=== PATIENT | female | born 1980 | race American Indian/Alaskan Native ===

== ENCOUNTER 2018-11-19 15:41 | Emergency (ER) | payer MEDICARE ==
--- NOTE | 2018-11-19 16:10 | Emergency Department Report ---
Blank Doc - Documentation Documentation: 37 y/o female comes in for 4 day history of lower abdominal pain and vaginal d ischarge.
[2018-11-19 17:10] LABS: Bacteria,Urine 4+ /HPF (Negative); Bilirubin,Urine NEG (Negative); Blood,Urine LG (Negative); Color,Urine Yellow (Yellow); Mucus,Urine FEW /HPF; Protein,Urine <15 mg/dL mg/dL (Negative); Urobilinogen,Urine < 2.0 mg/dL (<2.0)
[2018-11-19 17:11] LABS: HCG Qualitative,Urine Negative (Negative)
[2018-11-19] MEDS ORDERED: BENTYL IM ONE (19:38)
[2018-11-19] MEDS ORDERED: NACL 0.9% 1000 ML 1,000 ML IV ONE (19:38)
[2018-11-19] MEDS ORDERED: ZOFRAN IV ONE (19:38)
[2018-11-19] MEDS ORDERED: TYLENOL PO ONE (19:39)
[2018-11-19 20:06] LABS: Basophils # (Auto) 0.1 K/mm3 (0.0-0.1); Basophils % (Auto) 0.7 % (0.0-1.8); Eosinophils # (Auto) 0.1 K/mm3 (0.0-0.4); Eosinophils % (Auto) 1.4 % (0.0-4.3); Hematocrit 33.2 % (30.3-42.9); Hemoglobin 10.9 gm/dl (10.1-14.3); Lymphocytes # (Auto) 3.1 K/mm3 (1.2-5.4); Lymphocytes % (Auto) 36.3 % (13.4-35.0); Mean Corpuscular HGB Conc 33 % (30-34); Mean Corpuscular Volume 82 fl (79-97); Monocytes # (Auto) 0.6 K/mm3 (0.0-0.8); Monocytes % (Auto) 7.1 % (0.0-7.3); Platelet Count 417 K/mm3 (140-440); Red Blood Count 4.06 M/mm3 (3.65-5.03); Red Cell Distribution Width 15.8 % (13.2-15.2)
[2018-11-19 20:24] LABS: Alanine Aminotransferase 8 units/L (7-56); Albumin 4.2 g/dL (3.9-5); BUN/Creatinine Ratio 11; Blood Urea Nitrogen 8 mg/dL (7-17); Calcium 9.4 mg/dL (8.4-10.2); Hemolysis Index 0
--- NOTE | 2018-11-19 23:13 | Cat Scan Report ---
PROCEDURE: CT ABDOMEN PELVIS W CON TECHNIQUE: Computerized axial tomography of the abdomen and pelvis was performed after the IV inject ion of iodinated nonionic contrast. HISTORY: abdominal pain COMPARISONS: None . FINDINGS: Visualized lower thorax: No significant abnormality. Liver: Normal size and attenuation. Spleen: Normal size and attenuation. Gallbladder and biliary system: Normal. Pancreas: Normal. Adrenals: Normal. Kidneys: Normal. GI tract: No obstruction. No ileus or enteritis. The cecum, appendix and colon are normal . Lymph nodes and mesentery: Normal. Vasculature: Normal.. Bladder: Normal. Reproductive organs: Normal. Peritoneum: No free fluid. Musculoskeletal structures: No significant abnormality. Other: None . IMPRESSION: There is no evidence of intestinal or urinary tract obstruction. No ileus or enteritis. The appendix is normal. . This document is electronically signed by Jahaira Torres DO., Nov 19 2018 11:11:41 PM ET
--- NOTE | 2018-11-19 23:59 | Emergency Department Report ---
ED Abdominal Pain HPI - General Chief Complaint: Abdominal Pain Stated Complaint: STOMACH PAIN/BLEEDING/WEAKNESS Time Seen by Provider: 11/19/18 20:10 Source: patient Mode of arrival: Ambulatory Limitations: No Limitations - History of Present Illness Initial Comments: Patient is a A0 37-year-old female with no past medical history and has irregular menstrual cycle presents to the ED with complaint of acute onset persistent severe left lower quadrant abdominal pain that radiates to the suprapubic area with nausea for the last 1 week, worse in the last 3 days. Patient denies dysuria, urinary frequency and urgency, vaginal discharge, low back pain, diarrhea, fever, chills, back pain, dizziness, cough, chest pain or shortness of breath. MD Complaint: abdominal pain -: week(s) (1) Location: LLQ, suprapubic Radiation: LLQ, suprapubic Migration to: no migration Severity: severe Severity scale (0 -10): 7 Quality: cramping, aching, sharp Consistency: constant Improves With: nothing Worsens With: nothing Associated Symptoms: nausea. denies: vomiting, diarrhea, fever, chills, constipation, dysuria, hematemesis, hematochezia, melena, hematuria, anorexia, syncope - Related Data LMP (females 10-50): last week Previous Rx's Medication Instructions Recorded Last Taken Type Ketorolac [Toradol] 10 mg PO Q8H PRN #20 tablet 11/19/18 Unknown Rx Ondansetron [Zofran Odt] 4 mg PO Q6HR PRN #15 tab.rapdis 11/19/18 Unknown Rx Allergies Allergy/AdvReac Type Severity Reaction Status Date / Time No Known Allergies Allergy Unverified 11/19/18 20:50 ED Review of Systems ROS: Stated complaint: STOMACH PAIN/BLEEDING/WEAKNESS Other details as noted in HPI Comment: All other systems reviewed and negative Constitutional: no symptoms reported, see HPI. denies: fever, malaise, weakness Eyes: as per HPI. denies: eye pain, eye discharge, vision change ENT: as per HPI. denies: ear pain, throat pain, dental pain, hearing loss Respiratory: no symptoms reported, see HPI. denies: cough, shortness of breath, SOB with exertion, SOB at rest Cardiovascular: as per HPI. denies: chest pain, palpitations, dyspnea on exertion, edema, syncope, paroxysmal nocturnal dyspnea Endocrine: no symptoms reported, see HPI. denies: excessive sweating, flushing, intolerance to heat, increased hunger Gastrointestinal: as per HPI, abdominal pain, nausea. denies: vomiting, diarrhea, constipation, hematemesis, melena Genitourinary: as per HPI. denies: urgency, dysuria, frequency, hematuria, discharge, abnormal menses, dyspareunia Musculoskeletal: as per HPI. denies: back pain, joint swelling, arthralgia, myalgia Skin: as per HPI. denies: rash, lesions, change in color, change in hair/nails, pruritus Neurological: as per HPI. denies: headache, weakness, numbness, paresthesias Psychiatric: as per HPI Hematological/Lymphatic: as per HPI ED Past Medical Hx - Past Medical History Previous Medical History?: Yes Hx Asthma: Yes - Surgical History Past Surgical History?: No - Social History Smoking Status: Current Every Day Smoker Substance Use Type: None - Medications Home Medications: Home Medications Medication Instructions Recorded Confirmed Last Taken Type Ketorolac [Toradol] 10 mg PO Q8H PRN #20 tablet 11/19/18 Unknown Rx Ondansetron [Zofran Odt] 4 mg PO Q6HR PRN #15 tab.rapdis 11/19/18 Unknown Rx ED Physical Exam - General Limitations: No Limitations General appearance: alert, in no apparent distress - Head Head exam: Present: atraumatic, normocephalic, normal inspection - Eye Eye exam: Present: normal appearance, PERRL, EOMI Pupils: Present: normal accommodation - ENT ENT exam: Present: normal exam, normal orophraynx, mucous membranes moist, TM's normal bilaterally, normal external ear exam - Neck Neck exam: Present: normal inspection, full ROM - Respiratory Respiratory exam: Present: normal lung sounds bilaterally. Absent: respiratory distress, wheezes, rales - Cardiovascular Cardiovascular Exam: Present: regular rate, normal rhythm, normal heart sounds - GI/Abdominal GI/Abdominal exam: Present: soft, tenderness (LLQ, no rebound), normal bowel sounds. Absent: guarding, rebound, hyperactive bowel sounds, hypoactive bowel sounds - Rectal Rectal exam: Present: deferred - External exam: Present: other (Patient declined) Speculum exam: Present: other (Patient declined) Bi-manual exam: Present: other (Deferred) - Extremities Exam Extremities exam: Present: normal inspection, full ROM, normal capillary refill - Back Exam Back exam: Present: normal inspection, full ROM. Absent: tenderness, CVA tenderness (R), CVA tenderness (L), muscle spasm, paraspinal tenderness - Neurological Exam Neurological exam: Present: alert, oriented X3, CN II-XII intact, normal gait, reflexes normal - Psychiatric Psychiatric exam: Present: normal affect - Skin Skin exam: Present: warm, dry, intact ED Course Vital Signs 11/19/18 11/19/18 16:03 19:35 Temperature 98.4 F 98 F Pulse Rate 67 55 L Respiratory 20 17 Rate Blood Pressure 121/67 Blood Pressure 117/52 [Left] O2 Sat by Pulse 100 100 Oximetry - Reevaluation(s) Reevaluation #1: 11/20/18 00:03 Patient is alert and oriented 3 and is not in distress with normal vital signs. Labs were drawn and an abdominal pelvic CT scan with contrast is ordered. Patient was treated for pain the ED as well as also given antiemetics. On reevaluation, patient's pain is well controlled as well as nausea. Lab test results were reviewed and are unremarkable including urinalysis. Abdomen pelvis CT scan with contrast shows no acute abdominal pathology with a normal appendix and normal kidneys and pancreas and other organs. The patient's history and physical exam findings as well as lab test results and imaging report, the patient's symptoms are likely due to dysmenorrhea. Patient was discharged home in pain medications and advised to follow-up with MELLOWING MACHINE OPERATOR physician in 5-7 days for reevaluation. Patient was also advised to consider taking control medications to localize her menstrual cycle. ED Medical Decision Making - Lab Data Result diagrams: 11/19/18 19:46 11/19/18 19:46 - Radiology Data Radiology results: report reviewed, image reviewed Abdomen pelvis CT scan with contrast shows no acute pathology. - Medical Decision Making Patient is alert and oriented 3 and is not in distress with normal vital signs. Labs were drawn and an abdominopelvic CT scan with contrast is ordered. Patient was treated for pain the ED as well as also given antiemetics. On reevaluation, patient's pain is well controlled as well as nausea. Lab test results were reviewed and are unremarkable including urinalysis. Abdomen pelvis CT scan with contrast shows no acute abdominal pathology with a normal appendix and normal kidneys and pancreas and other organs. The patient's history and physical exam findings as well as lab test results and imaging report, the patient's symptoms are likely due to dysmenorrhea. Patient was discharged home in pain medications and advised to follow-up with MELLOWING MACHINE OPERATOR physician in 5-7 days for reevaluation. Patient was also advised to consider taking control medications to localize her menstrual cycle. - Differential Diagnosis Dysmenorrhea, Abdominal pain, Colitis Critical care attestation.: If time is entered above; I have spent that time in minutes in the direct care of this critically ill patient, excluding procedure time. ED Disposition Clinical Impression: Dysmenorrhea Abdominal pain Qualifiers: Abdominal location: left lower quadrant Qualified Code(s): R10.32 - Left lower quadrant pain Disposition: TO HOME OR SELFCARE Is pt being admited?: No Does the pt Need Aspirin: No Condition: Stable Instructions: Abdominal Pain (ED) Additional Instructions: Take medications with food, drink plenty of fluids and follow-up with your primary care physician's advice. Return to the ED immediately if symptoms get worse. Prescriptions: Ketorolac [Toradol] 10 mg PO Q8H PRN #20 tablet PRN Reason: Pain Ondansetron [Zofran Odt] 4 mg PO Q6HR PRN #15 tab.rapdis PRN Reason: Nausea Referrals: JAMAL TOMPKINS MD [Primary Care Provider] - 3-5 Days Time of Disposition: 23:57 Print Language: ITALIAN
[2018-11-20 00:20] VITALS: BP 118/67
== END 2018-11-20 00:20 | disposition home or self-care (01) ==
LOC: ED 15:41
DX: N94.6 Dysmenorrhea, unspecified (principal); J45.909 Unspecified asthma, uncomplicated; F17.200 Nicotine dependence, unspecified, uncomplicated
CPT/HCPCS: 36415; 74177; 80053; 81001; 81025; 83690; 85025; 96372; 96374; 99284; J0500; J2405; J7030; Q9967

== ENCOUNTER 2019-04-22 19:14 | Emergency (ER) | payer MEDICARE ==
--- NOTE | 2019-04-22 19:38 | Event Note ---
ED Screening Note Date of service: 04/22/19 Time: 19:35 ED Screening Note: This is a 38 y.o. F. that presents to the ER with left sided chest pain for 30- 45 minutes. Reports sharp pain that is non-radiating. States pain is worse with deep breaths. States she was driving when pain started. + palpations. - n/v, radiating pain, fever, cough, or SOB This initial assessment/diagnostic orders/clinical plan/treatment(s) is/are subject to change based on patients health status, clinical progression and re- assessment by fellow clinical providers in the ED. Further treatment and workup at subsequent clinical providers discretion. Patient/guardian urged not to elope from the ED as their condition may be serious if not clinically assessed and managed. Initial orders include: Labs, EKG, & CXR
--- NOTE | 2019-04-22 20:18 | XRay Report ---
CHEST PA AND LATERAL VIEWS INDICATION: Chest Pain. COMPARISON: None. FINDINGS: Support devices: None. Heart: Within normal limits. Lungs/Pleura: No acute pulmonary or pleural findings. IMPRESSION: 1. No significant abnormality. Signer Name: Buck Morrison MD Signed: 04/22/2019 8:14 PM Workstation Name: [id number]
[2019-04-22 20:31] LABS: Basophils # (Auto) 0.1 K/mm3 (0.0-0.1); Basophils % (Auto) 0.7 % (0.0-1.8); Eosinophils # (Auto) 0.1 K/mm3 (0.0-0.4); Eosinophils % (Auto) 0.7 % (0.0-4.3); Hematocrit 35.3 % (30.3-42.9); Hemoglobin 11.1 gm/dl (10.1-14.3); Lymphocytes # (Auto) 2.4 K/mm3 (1.2-5.4); Lymphocytes % (Auto) 21.1 % (13.4-35.0); Mean Corpuscular HGB Conc 32 % (30-34); Mean Corpuscular Volume 81 fl (79-97); Monocytes # (Auto) 0.7 K/mm3 (0.0-0.8); Monocytes % (Auto) 6.5 % (0.0-7.3); Platelet Count 418 K/mm3 (140-440); Red Blood Count 4.36 M/mm3 (3.65-5.03); Red Cell Distribution Width 16.2 % (13.2-15.2)
[2019-04-22 20:38] LABS: BUN/Creatinine Ratio 13; Blood Urea Nitrogen 9 mg/dL (7-17); Calcium 8.8 mg/dL (8.4-10.2); Hemolysis Index 3
[2019-04-22] MEDS ORDERED: TORADOL IM ONE (21:21)
--- NOTE | 2019-04-22 21:25 | Emergency Department Report ---
ED Chest Pain HPI - General Chief Complaint: Chest Pain Stated Complaint: CHEST PAIN Time Seen by Provider: 04/22/19 19:34 Source: patient Mode of arrival: Ambulatory Limitations: No Limitations - History of Present Illness Initial Comments: Patient is 38-year-old female with history of asthma. Patient presented to the ER complaining of left sided chest pain started this morning. Patient described her pain as sharp with no radiation. Patient denied any shortness of breath, fever or chills. Patient also stated that she has been having cough, productive with greenish sputum. Patient denied any fever or chills. No nausea or vomiting. MD Complaint: chest pain -: This morning Pain Location: left chest Severity scale (0 -10): 5 Quality: sharp Consistency: intermittent Improves With: remaining still Worsens With: movement Other Symptoms: cough - Related Data Previous Rx's Medication Instructions Recorded Last Taken Type Ketorolac [Toradol] 10 mg PO Q8H PRN #20 tablet 11/19/18 Unknown Rx Ondansetron [Zofran Odt] 4 mg PO Q6HR PRN #15 tab.rapdis 11/19/18 Unknown Rx Amoxicillin [Amoxicillin TAB] 875 mg PO BID #14 tablet 04/22/19 Unknown Rx Naproxen [Naprosyn] 500 mg PO BID #14 tablet 04/22/19 Unknown Rx Allergies Allergy/AdvReac Type Severity Reaction Status Date / Time No Known Allergies Allergy Unverified 11/19/18 20:50 Heart Score - HEART Score History: Slightly suspicious EKG: Normal Age: < 45 Risk factors: No known risk factors Troponin: < normal limit HEART Score: 0 - Critical Actions Critical Actions: 0-3 pts:0.9-1.7%risk of adverse cardiac event.Candidate for discharge ED Review of Systems ROS: Stated complaint: CHEST PAIN Other details as noted in HPI Comment: All other systems reviewed and negative Constitutional: denies: chills, fever Respiratory: cough. denies: orthopnea, shortness of breath, SOB with exertion, SOB at rest Cardiovascular: chest pain Gastrointestinal: denies: abdominal pain, nausea, vomiting, diarrhea, constipation, hematemesis, melena, hematochezia Musculoskeletal: denies: back pain Neurological: denies: headache, weakness ED Past Medical Hx - Past Medical History Hx Asthma: Yes - Surgical History Additional Surgical History: x 2 - Social History Smoking Status: Unknown if ever smoked Substance Use Type: None - Medications Home Medications: Home Medications Medication Instructions Recorded Confirmed Last Taken Type Ketorolac [Toradol] 10 mg PO Q8H PRN #20 tablet 11/19/18 Unknown Rx Ondansetron [Zofran Odt] 4 mg PO Q6HR PRN #15 tab.rapdis 11/19/18 Unknown Rx Amoxicillin [Amoxicillin TAB] 875 mg PO BID #14 tablet 04/22/19 Unknown Rx Naproxen [Naprosyn] 500 mg PO BID #14 tablet 04/22/19 Unknown Rx ED Physical Exam - General Limitations: No Limitations General appearance: alert, in no apparent distress - Head Head exam: Present: atraumatic, normocephalic, normal inspection - Eye Eye exam: Present: normal appearance, PERRL - ENT ENT exam: Present: normal exam, normal orophraynx, mucous membranes moist - Neck Neck exam: Present: normal inspection, full ROM. Absent: tenderness, meningismus, lymphadenopathy, thyromegaly - Respiratory Respiratory exam: Present: normal lung sounds bilaterally, chest wall tenderness. Absent: respiratory distress, wheezes, rales, rhonchi - Cardiovascular Cardiovascular Exam: Present: regular rate, normal rhythm, normal heart sounds - GI/Abdominal GI/Abdominal exam: Present: soft, normal bowel sounds. Absent: distended, tenderness, guarding, rebound, rigid, organomegaly, mass, bruit, pulsatile mass - Extremities Exam Extremities exam: Present: normal inspection, full ROM, normal capillary refill. Absent: tenderness, pedal edema, calf tenderness - Back Exam Back exam: Present: normal inspection, full ROM. Absent: CVA tenderness (R), CVA tenderness (L), muscle spasm, paraspinal tenderness, vertebral tenderness - Neurological Exam Neurological exam: Present: alert, oriented X3, CN II-XII intact, normal gait, reflexes normal - Psychiatric Psychiatric exam: Present: normal mood - Skin Skin exam: Present: intact ED Course Vital Signs 04/22/19 04/22/19 04/22/19 19:25 20:55 21:00 Temperature 98.3 F Pulse Rate 92 H 95 H 71 Respiratory 16 17 14 Rate Blood Pressure 115/73 121/72 121/72 Blood Pressure [Left] O2 Sat by Pulse 100 100 100 Oximetry 04/22/19 04/22/1919 21:03 21:47 22:00 Temperature 98.2 F Pulse Rate 78 78 Respiratory 16 19 15 Rate Blood Pressure 122/68 Blood Pressure 114/69 [Left] O2 Sat by Pulse 100 100 Oximetry 04/22/19 04/22/19 04/22/19 22:17 23:00 23:38 Temperature 98.3 F Pulse Rate 75 89 Respiratory 16 19 16 Rate Blood Pressure 118/68 Blood Pressure 129/71 [Left] O2 Sat by Pulse 99 Oximetry ED Medical Decision Making - Lab Data Result diagrams: 04/22/19 20:03 04/22/19 20:03 - EKG Data -: EKG Interpreted by Nv EKG shows normal: sinus rhythm Rate: normal - EKG Data Interpretation: no acute changes - Radiology Data Radiology results: report reviewed - Medical Decision Making Patient is 38-year-old female with history of asthma. Patient presented to the ER complaining of left sided chest pain started this morning. Patient described her pain as sharp with no radiation. Patient denied any shortness of breath, fever or chills. Patient also stated that she has been having cough, productive with greenish sputum. Patient denied any fever or chills. No nausea or vomiting. EKG is unremarkable. cxr is negative. 2 sets of troponins. d-dimer is negative. patient pain resolved with toradol. patient advised to follow up with her PCP in 2-3 days and return to the er if symptoms not improved. Critical care attestation.: If time is entered above; I have spent that time in minutes in the direct care of this critically ill patient, excluding procedure time. ED Disposition Clinical Impression: Chest pain, Costochondritis, acute, Bronchitis Disposition: -01 TO HOME OR SELFCARE Is pt being admited?: No Condition: Stable Instructions: Chest Pain (ED), Costochondritis (ED), Acute Bronchitis (ED) Prescriptions: Amoxicillin [Amoxicillin TAB] 875 mg PO BID #14 tablet Naproxen [Naprosyn] 500 mg PO BID #14 tablet Referrals: [facility] [Provider Group] - 3-5 Days
[2019-04-22 23:51] VITALS: BP 129/71
== END 2019-04-22 23:45 | disposition home or self-care (01) ==
LOC: ED 19:14
DX: M94.0 Chondrocostal junction syndrome [Tietze] (principal); J20.9 Acute bronchitis, unspecified; J45.909 Unspecified asthma, uncomplicated
CPT/HCPCS: 36415; 71045; 80048; 84484; 84703; 85025; 85379; 93005; 93010; 96372; 99284; J1885

== ENCOUNTER 2019-06-06 15:29 | Emergency (ER) | payer MEDICARE ==
[2019-06-06 15:34] VITALS: BP 140/79
--- NOTE | 2019-06-06 15:37 | Event Note ---
ED Screening Note Date of service: 06/06/19 Time: 15:36 ED Screening Note: This is a 38 y.o. F. that presents to the ER with rash to upper back for 4 days. PMH of HSV Denies pruritus, swelling, warmth, and redness. This initial assessment/diagnostic orders/clinical plan/treatment(s) is/are s ubject to change based on patients health status, clinical progression and re- assessment by fellow clinical providers in the ED. Further treatment and workup at subsequent clinical providers discretion. Patient/guardian urged not to elope from the ED as their condition may be serious if not clinically assessed and managed. Initial orders include:
--- NOTE | 2019-06-06 16:42 | Emergency Department Report ---
- General Chief complaint: Skin Rash Stated complaint: RASH ON BACK Time Seen by Provider: 06/06/19 15:35 Source: patient Mode of arrival: Ambulatory Limitations: No Limitations - History of Present Illness Initial comments: 38-year-old female presents to ED with rash 4 days. Patient states she noticed the rash on her back over days ago. She denies any pain or itching in the area of the rash. Denies fever, use of any new detergent/lotions/fragrances. Patient denies any recent insect bites. She denies any sore throat, oral lesions, cough or URI symptoms. Patient denies any abdominal pain, vomiting or diarrhea. She denies being in contact with anyone with a known rash. Denies any new medications MD complaint: rash -: days(s) (4) Location: back Severity: mild Improves with: none Worsens with: none Context: none Associated symptoms: denies other symptoms Treatments Prior to Arrival: none - Related Data Previous Rx's Medication Instructions Recorded Last Taken Type Ketorolac [Toradol] 10 mg PO Q8H PRN #20 tablet 11/19/18 Unknown Rx Ondansetron [Zofran Odt] 4 mg PO Q6HR PRN #15 tab.rapdis 11/19/18 Unknown Rx Amoxicillin [Amoxicillin TAB] 875 mg PO BID #14 tablet 04/22/19 Unknown Rx Naproxen [Naprosyn] 500 mg PO BID #14 tablet 04/22/19 Unknown Rx Allergies Allergy/AdvReac Type Severity Reaction Status Date / Time No Known Allergies Allergy Unverified 11/19/18 20:50 Abscess Boil HPI - HPI Chief Complaint: Skin Rash Stated Complaint: RASH ON BACK Time Seen by Provider: 06/06/19 15:35 Home Medications: Previous Rx's Medication Instructions Recorded Last Taken Type Ketorolac [Toradol] 10 mg PO Q8H PRN #20 tablet 11/19/18 Unknown Rx Ondansetron [Zofran Odt] 4 mg PO Q6HR PRN #15 tab.rapdis 11/19/18 Unknown Rx Amoxicillin [Amoxicillin TAB] 875 mg PO BID #14 tablet 04/22/19 Unknown Rx Naproxen [Naprosyn] 500 mg PO BID #14 tablet 04/22/19 Unknown Rx Allergies/Adverse Reactions: Allergies Allergy/AdvReac Type Severity Reaction Status Date / Time No Known Allergies Allergy Unverified 11/19/18 20:50 ED Review of Systems ROS: Stated complaint: RASH ON BACK Other details as noted in HPI Comment: All other systems reviewed and negative Constitutional: denies: chills, fever ENT: denies: throat pain Respiratory: denies: cough, shortness of breath Gastrointestinal: denies: abdominal pain, vomiting, diarrhea Genitourinary: denies: dysuria Musculoskeletal: denies: arthralgia Skin: as per HPI, rash Neurological: denies: headache ED Past Medical Hx - Past Medical History Hx Asthma: Yes - Surgical History Additional Surgical History: x 2 - Social History Smoking Status: Never Smoker Substance Use Type: None - Medications Home Medications: Home Medications Medication Instructions Recorded Confirmed Last Taken Type Ketorolac [Toradol] 10 mg PO Q8H PRN #20 tablet 11/19/18 Unknown Rx Ondansetron [Zofran Odt] 4 mg PO Q6HR PRN #15 tab.rapdis 11/19/18 Unknown Rx Amoxicillin [Amoxicillin TAB] 875 mg PO BID #14 tablet 04/22/19 Unknown Rx Naproxen [Naprosyn] 500 mg PO BID #14 tablet 04/22/19 Unknown Rx ED Physical Exam - General Limitations: No Limitations General appearance: alert, in no apparent distress - Head Head exam: Present: atraumatic, normocephalic - Eye Eye exam: Present: normal appearance - ENT ENT exam: Present: normal exam, normal orophraynx, mucous membranes moist - Neck Neck exam: Present: normal inspection - Respiratory Respiratory exam: Present: normal lung sounds bilaterally. Absent: respiratory distress - Cardiovascular Cardiovascular Exam: Present: normal rhythm, tachycardia - GI/Abdominal GI/Abdominal exam: Present: soft. Absent: distended, tenderness - Extremities Exam Extremities exam: Present: normal inspection - Back Exam Back exam: Present: full ROM - Neurological Exam Neurological exam: Present: alert, oriented X3 - Psychiatric Psychiatric exam: Present: normal affect, normal mood - Skin Skin exam: Present: rash (hyperpigmented maculopapular rash located on upper back) ED Course Vital Signs 06/06/19 06/06/19 06/06/19 15:32 15:39 16:36 Temperature 98.4 F Pulse Rate 134 H 120 H 90 Respiratory 16 18 Rate Blood Pressure 140/79 O2 Sat by Pulse 99 100 Oximetry ED Medical Decision Making - Medical Decision Making Patient initially tachycardic at triage. Patient states she was initially nervous because she recently received a diagnosis of herpes at a recent doctor's appointment. Patient also concerned about possible HIV infection. Patient is afebrile, nontoxic appearing. Rash is isolated to the back, no mucosal involvement, no sloughing of the skin. Vitals were repeated and are currently normal. Patient advised to follow-up with technical communicator. Also advised to follow-up with her physician regarding HIV testing. Return precautions given. - Differential Diagnosis rash Critical care attestation.: If time is entered above; I have spent that time in minutes in the direct care of this critically ill patient, excluding procedure time. ED Disposition Clinical Impression: Dermatitis Disposition: DC-01 TO HOME OR SELFCARE Is pt being admited?: No Condition: Stable Instructions: Acute Rash (ED) Additional Instructions: Dr Carroll Wren, technical communicator [id number] [facility] [address] [place] [address] Referrals: PRIMARY CAREMD [Referring] - 3-5 Days YEVGENIY FITCH MD [Referring] - 3-5 Days SHANAE JERONIMO MD [Staff Physician] - 3-5 Days Time of Disposition: 16:50
== END 2019-06-06 16:58 | disposition home or self-care (01) ==
LOC: ED 15:29
DX: L30.9 Dermatitis, unspecified (principal); J45.909 Unspecified asthma, uncomplicated

== ENCOUNTER 2020-05-08 20:48 | Emergency (ER) | payer MEDICARE ==
[2020-05-08 21:44] VITALS: BP 144/58
[2020-05-08 23:10] LABS: Basophils # (Auto) 0.1 K/mm3 (0.0-0.1); Basophils % (Auto) 0.6 % (0.0-1.8); Eosinophils # (Auto) 0.1 K/mm3 (0.0-0.4); Eosinophils % (Auto) 0.5 % (0.0-4.3); Hematocrit 34.6 % (30.3-42.9); Hemoglobin 11.6 gm/dl (10.1-14.3); Lymphocytes # (Auto) 2.4 K/mm3 (1.2-5.4); Lymphocytes % (Auto) 21.1 % (13.4-35.0); Mean Corpuscular HGB Conc 34 % (30-34); Mean Corpuscular Volume 84 fl (79-97); Monocytes # (Auto) 0.8 K/mm3 (0.0-0.8); Monocytes % (Auto) 7.4 % (0.0-7.3); Platelet Count 452 K/mm3 (140-440); Red Cell Distribution Width 14.4 % (13.2-15.2)
[2020-05-08 23:35] LABS: BUN/Creatinine Ratio 14; Blood Urea Nitrogen 11 mg/dL (7-17); Calcium 9.2 mg/dL (8.4-10.2); Hemolysis Index 10
[2020-05-09 02:06] LABS: Bacteria,Urine 1+ /HPF (Negative); Bilirubin,Urine NEG (Negative); Blood,Urine LG (Negative); Color,Urine Straw (Yellow); Mucus,Urine FEW /HPF; Protein,Urine <15 mg/dL mg/dL (Negative); Urobilinogen,Urine < 2.0 mg/dL (<2.0)
[2020-05-09 02:09] LABS: HCG Qualitative,Urine Negative (Negative)
== END 2020-05-09 03:35 | disposition left against medical advice (07) ==
LOC: ED 20:48
DX: R07.89 Other chest pain (principal); M54.6 Pain in thoracic spine; Z53.21 Procedure and treatment not carried out due to patient leaving prior to being seen by health care provider
CPT/HCPCS: 36415; 80048; 81001; 81025; 84484; 85025; 93005

== ENCOUNTER 2020-07-24 16:43 | Emergency (ER) | payer MEDICARE ==
[2020-07-24 16:56] VITALS: BP 131/75
[2020-07-24] MEDS ORDERED: ASPIRIN 325 MG TAB PO ONE (16:58)
--- NOTE | 2020-07-24 17:30 | XRay Report ---
CHEST 2 VIEWS INDICATION / CLINICAL INFORMATION: Chest Pain. COMPARISON: 04/22/19 FINDINGS: SUPPORT DEVICES: None. HEART / MEDIASTINUM: No significant abnormality. LUNGS / PLEURA: No significant pulmonary or pleural abnormality. No pneumothorax. ADDITIONAL FINDINGS: No significant additional findings. IMPRESSION: 1. No acute findings. Signer Name: Dmitry Espitia MD Signed: 07/24/2020 5:25 PM Workstation Name: [id number]
[2020-07-24 18:26] LABS: Basophils % (Auto) 0.3 % (0.0-1.8); Eosinophils # (Auto) 0.1 K/mm3 (0.0-0.4); Eosinophils % (Auto) 0.5 % (0.0-4.3); Hematocrit 34.7 % (30.3-42.9); Hemoglobin 11.3 gm/dl (10.1-14.3); Lymphocytes % (Auto) 16.7 % (13.4-35.0); Mean Corpuscular HGB Conc 33 % (30-34); Mean Corpuscular Volume 83 fl (79-97); Monocytes # (Auto) 0.7 K/mm3 (0.0-0.8); Platelet Count 553 K/mm3 (140-440); Red Blood Count 4.19 M/mm3 (3.65-5.03); Red Cell Distribution Width 15.8 % (13.2-15.2)
[2020-07-24 18:42] LABS: Blood Urea Nitrogen 10 mg/dL (7-17); Calcium 9.5 mg/dL (8.4-10.2); Hemolysis Index 2
[2020-07-24 19:03] LABS: BUN/Creatinine Ratio 14
--- NOTE | 2020-07-24 21:33 | Emergency Department Report ---
ED Chest Pain HPI - General Chief Complaint: Chest Pain Stated Complaint: CHEST DISCOMFORT Time Seen by Provider: 07/24/20 21:24 Source: patient Mode of arrival: Ambulatory Limitations: No Limitations - History of Present Illness Initial Comments: This is a 39-year-old -Central African female presents to the emergency department with complaint of some generalized chest tightness that has been going on intermittently since yesterday. The patient says that she has been having a lot of stress and anxiety and thinks that this could be part of the cause. She denies any shortness of breath, nausea, vomiting, back pain, lower extremity swelling or diaphoresis. The patient does admit to feeling nervous. She denies any past medical history. No family history of early cardiac events or ME. She denies any tobacco or illicit drug use. At the time of my examination she says that she is asymptomatic. The patient also admits that she has had the symptoms intermittently in the past over this past year. She has a primary care physician and has an appointment with them tomorrow. She did not take anything for symptoms prior to presentation today. - Related Data Previous Rx's Medication Instructions Recorded Last Taken Type Ketorolac [Toradol] 10 mg PO Q8H PRN #20 tablet 11/19/18 Unknown Rx Ondansetron [Zofran Odt] 4 mg PO Q6HR PRN #15 tab.rapdis 11/19/18 Unknown Rx Amoxicillin [Amoxicillin TAB] 875 mg PO BID #14 tablet 04/22/19 Unknown Rx Naproxen [Naprosyn] 500 mg PO BID #14 tablet 04/22/19 Unknown Rx Allergies Allergy/AdvReac Type Severity Reaction Status Date / Time No Known Allergies Allergy Unverified 11/19/18 20:50 Heart Score - HEART Score History: Slightly suspicious EKG: Normal Age: < 45 Risk factors: No known risk factors Troponin: < normal limit HEART Score: 0 - Critical Actions Critical Actions: 0-3 pts:0.9-1.7%risk of adverse cardiac event.Candidate for discharge ED Review of Systems ROS: Stated complaint: CHEST DISCOMFORT Other details as noted in HPI Comment: All other systems reviewed and negative Constitutional: denies: chills, fever Eyes: denies: eye pain, vision change ENT: denies: ear pain, throat pain Respiratory: denies: cough, shortness of breath Cardiovascular: chest pain. denies: palpitations Gastrointestinal: denies: abdominal pain, vomiting Genitourinary: denies: dysuria, discharge Musculoskeletal: denies: back pain, arthralgia Skin: denies: rash, lesions Neurological: denies: headache, weakness ED Past Medical Hx - Past Medical History Hx Asthma: Yes - Surgical History Additional Surgical History: x 2 - Social History Smoking Status: Never Smoker - Medications Home Medications: Home Medications Medication Instructions Recorded Confirmed Last Taken Type Ketorolac [Toradol] 10 mg PO Q8H PRN #20 tablet 11/19/18 Unknown Rx Ondansetron [Zofran Odt] 4 mg PO Q6HR PRN #15 tab.rapdis 11/19/18 Unknown Rx Amoxicillin [Amoxicillin TAB] 875 mg PO BID #14 tablet 04/22/19 Unknown Rx Naproxen [Naprosyn] 500 mg PO BID #14 tablet 04/22/19 Unknown Rx ED Physical Exam - General Limitations: No Limitations - Other Other exam information: GENERAL: The patient is well-developed well-nourished. HENT: Normocephalic. Atraumatic. Patient has moist mucous membranes. EYES: Extraocular motions are intact. NECK: Supple. Trachea is midline. CHEST/LUNGS: Clear to auscultation. There is no respiratory distress noted. HEART/CARDIOVASCULAR: Regular. There is no tachycardia. There is no murmur. ABDOMEN: Abdomen is soft, nontender. Patient has normal bowel sounds. SKIN: Skin is warm and dry. NEURO: The patient is awake, alert, and oriented. The patient is cooperative. The patient has no focal neurologic deficits. Normal speech. MUSCULOSKELETAL: There is no tenderness or deformity. There is no limitation range of motion. ED Course Vital Signs 07/24/20 16:52 Temperature 98.1 F Pulse Rate 122 H Respiratory 18 Rate Blood Pressure 131/75 O2 Sat by Pulse 99 Oximetry REBECCA score - Rebecca Score Age > 65: (0) No Aspirin use within the Past 7 Days: (0) No 3 or more CAD Risk Factors: (0) No 2 or more Angina events in past 24 hrs: (1) Yes Known CAD with more than 50% Stenosis: (0) No Elevated Cardiac Markers: (0) No ST Deviation Greater than 0.5mm: (0) No REBECCA Score: 1 ED Medical Decision Making - Lab Data Result diagrams: 07/24/20 17:01 07/24/20 17:01 Lab Results 07/24/20 07/24/20 Range/Units 17:01 17:01 WBC 12.1 H (4.5-11.0) K/mm3 RBC 4.19 (3.65-5.03) M/mm3 Hgb 11.3 (10.1-14.3) gm/dl Hct 34.7 (30.3-42.9) % MCV 83 (79-97) fl MCH 27 L (28-32) pg MCHC 33 (30-34) % RDW 15.8 H (13.2-15.2) % Plt Count 553 H (140-440) K/mm3 Lymph % (Auto) 16.7 (13.4-35.0) % Winston % (Auto) 6.0 (0.0-7.3) % Eos % (Auto) 0.5 (0.0-4.3) % Baso % (Auto) 0.3 (0.0-1.8) % Lymph # (Auto) 2.0 (1.2-5.4) K/mm3 Winston # (Auto) 0.7 (0.0-0.8) K/mm3 Eos # (Auto) 0.1 (0.0-0.4) K/mm3 Baso # (Auto) 0.0 (0.0-0.1) K/mm3 Seg Neutrophils % 76.5 H (40.0-70.0) % Seg Neutrophils # 9.2 H (1.8-7.7) K/mm3 Sodium 137 (137-145) mmol/L Potassium 4.1 (3.6-5.0) mmol/L Chloride 101.5 (98-107) mmol/L Carbon Dioxide 24 (22-30) mmol/L Anion Gap 16 mmol/L BUN 10 (7-17) mg/dL Creatinine 0.7 (0.6-1.2) mg/dL Estimated GFR > 60 ml/min BUN/Creatinine Ratio 14 % Glucose 92 (65-100) mg/dL Calcium 9.5 (8.4-10.2) mg/dL Troponin T < 0.010 (0.00-0.029) ng/mL - EKG Data -: EKG Interpreted by Ia EKG shows normal: sinus rhythm, axis, intervals, QRS complexes, ST-T waves Rate: normal - EKG Data When compared to previous EKG there are: no significant change Interpretation: unchanged when compared t (05/08/20) - Radiology Data Radiology results: image reviewed interpreted by me: Chest x-ray does not show any acute process. There are no pleural effusions, obvious pneumonia and there is no pneumothorax. No significant cardiomegaly. - Medical Decision Making This patient presents to the emergency department with the complaint of some intermittent generalized chest discomfort that has been going on since yesterday. EKG does not have any morphology consistent with ST elevation myocardial infarction or any dysrhythmia. Patient's labs have been unremarkable including CBC, metabolic panel and a negative troponin. At the time of my initial examination the patient is asymptomatic. A chest x-ray was done that does not show any pneumonia, pleural effusions, pneumothorax, focal consolidation, or any other acute process. The patient is a 0 on the heart score and low on the REBECCA score. The patient is low on the Wells score criteria and has no complaints of any shortness of breath or back pain. For this reason the patient appears safe for discharge home at this time. Her contact information has been sent over to the [facility] vascular lookout, and someone from the office should be contacting her shortly for close outpatient follow-up as part of our [facility] low risk chest pain protocol. It should be noted that the patient's tachycardia had resolved at the time of my evaluation. The EKG also shows a normal heart rate. The vitals were not updated in the chart. Critical Care Time: No Critical care attestation.: If time is entered above; I have spent that time in minutes in the direct care of this critically ill patient, excluding procedure time. ED Disposition Clinical Impression: Intermittent chest pain Disposition: DC-01 TO HOME OR SELFCARE Is pt being admited?: No Condition: Stable Instructions: Nonspecific Chest Pain, Adult, Chest Pain (ED) Additional Instructions: Please follow-up with your primary care physician tomorrow as previously scheduled. I have sent your contact information over to the [facility] vascular lookout, and someone from their office should be contacting you shortly for close outpatient follow-up. Return to the emergency department with any worsening of your symptoms, new or concerning symptoms not addressed during this current emergency department visit, or with any acute distress. Referrals: PRIMARY CARE, [Primary Care Provider] - 07/25/20 EUGENE MCELROY MD [Staff Physician] - 2-3 Days Time of Disposition: 21:32
== END 2020-07-24 21:44 | disposition home or self-care (01) ==
LOC: ED 16:43
DX: R07.89 Other chest pain (principal); J45.909 Unspecified asthma, uncomplicated; Z79.2 Long term (current) use of antibiotics; Z79.899 Other long term (current) drug therapy
CPT/HCPCS: 36415; 71046; 80048; 84484; 85025; 93005; 99283

== ENCOUNTER 2021-04-27 13:56 | Emergency (ER) | payer MEDICARE ==
[2021-04-27] MEDS ORDERED: IBUPROFEN 800 MG TAB PO ONE (14:37)
--- NOTE | 2021-04-27 15:10 | Emergency Department Report ---
ED Upper Extremity Inj HPI - General Chief Complaint: Extremity Injury, Upper Stated Complaint: RT ARM SWELLING/WORK RELATED YESTERDAY Time Seen by Provider: 04/27/21 14:22 Source: patient Mode of arrival: Ambulatory Limitations: No Limitations - History of Present Illness Initial Comments: This is a 40-year-old female nontoxic, well nourished in appearance, no acute signs of distress presents to the ED with c/o of right forearm pain 1 day. Patient stated that a metal piece hit patient's forearm while at work yesterday. Patient denies any other injuries or trauma. Patient denies any numbness, tingling, fever, chills, nausea, vomiting, chest pain, shortness of breath, headache, stiff neck. Patient denies any joint swelling or joint redness. Patient denies decreased range of motion. Patient denies any allergies or significant past medical history. MD Complaint: Injury to:: right, forearm Other Injuries: none Place: work Severity scale (0 -10): 8 Improves With: immobilization Worsens With: other (Palpation) Associated Symptoms: denies other symptoms. denies: weakness, numbness, neck pain, suspects foreign body, nausea/vomiting, heard/felt popping sensat - Related Data Previous Rx's Medication Instructions Recorded Last Taken Type Ketorolac [Toradol] 10 mg PO Q8H PRN #20 tablet 11/19/18 Unknown Rx Ondansetron [Zofran Odt] 4 mg PO Q6HR PRN #15 tab.rapdis 11/19/18 Unknown Rx Amoxicillin [Amoxicillin TAB] 875 mg PO BID #14 tablet 04/22/19 Unknown Rx Naproxen [Naprosyn] 500 mg PO BID #14 tablet 04/22/19 Unknown Rx Naproxen 500 mg PO Q12H PRN #12 tablet 04/27/21 Unknown Rx Allergies Allergy/AdvReac Type Severity Reaction Status Date / Time No Known Allergies Allergy Verified 04/27/21 14:11 ED Review of Systems ROS: Stated complaint: RT ARM SWELLING/WORK RELATED YESTERDAY Other details as noted in HPI Comment: All other systems reviewed and negative Constitutional: denies: chills, fever Eyes: denies: eye pain, eye discharge, vision change ENT: denies: ear pain, throat pain Respiratory: denies: cough, shortness of breath, wheezing Cardiovascular: denies: chest pain, palpitations Endocrine: no symptoms reported Gastrointestinal: denies: abdominal pain, nausea, diarrhea Genitourinary: denies: urgency, dysuria, discharge Musculoskeletal: denies: back pain, joint swelling, arthralgia Skin: denies: rash, lesions Neurological: denies: headache, weakness, paresthesias Psychiatric: denies: anxiety, depression Hematological/Lymphatic: denies: easy bleeding, easy bruising ED Past Medical Hx - Past Medical History Hx Asthma: Yes - Surgical History Additional Surgical History: x 2 - Social History Smoking Status: Never Smoker - Medications Home Medications: Home Medications Medication Instructions Recorded Confirmed Last Taken Type Ketorolac [Toradol] 10 mg PO Q8H PRN #20 tablet 11/19/18 Unknown Rx Ondansetron [Zofran Odt] 4 mg PO Q6HR PRN #15 tab.rapdis 11/19/18 Unknown Rx Amoxicillin [Amoxicillin TAB] 875 mg PO BID #14 tablet 04/22/19 Unknown Rx Naproxen [Naprosyn] 500 mg PO BID #14 tablet 04/22/19 Unknown Rx Naproxen 500 mg PO Q12H PRN #12 tablet 04/27/21 Unknown Rx ED Physical Exam - General Limitations: No Limitations General appearance: alert, in no apparent distress - Head Head exam: Present: atraumatic, normocephalic - Eye Eye exam: Present: normal appearance - Neck Neck exam: Present: normal inspection, full ROM. Absent: lymphadenopathy - Respiratory Respiratory exam: Absent: respiratory distress - Cardiovascular Cardiovascular Exam: Present: regular rate - Extremities Exam Extremities exam: Present: normal inspection, full ROM, tenderness, normal capillary refill. Absent: joint swelling - Expanded Upper Extremity Exam Right General: Present: normal inspection Shoulder Exam: Present: normal inspection, full ROM. Absent: tenderness, swelling Upper Arm exam: Present: normal inspection, full ROM. Absent: tenderness, swelling Elbow exam: Present: normal inspection, full ROM. Absent: tenderness, swelling, abrasion, laceration, ecchymosis, deformity, crepidus, dislocation, erythema, effusion, pain w/ pronation/supination, tenderness over radial head Forearm Wrist exam: Present: normal inspection, full ROM, tenderness, ec chymosis. Absent: swelling, abrasion, laceration, deformity, crepidus, dislocation, erythema, tenderness over anatomical snuff box, pain with axial thumb loading Hand Wrist exam: Present: normal inspection, full ROM. Absent: tenderness, swelling Vascular: Present: normal capillary refill. Absent: vascular compromise (Neurovascular within normal limits) - Back Exam Back exam: Present: normal inspection, full ROM - Neurological Exam Neurological exam: Present: alert, oriented X3, normal gait - Psychiatric Psychiatric exam: Present: normal affect, normal mood - Skin Skin exam: Present: warm, dry, intact, normal color. Absent: rash ED Course Vital Signs 04/27/21 04/27/21 14:11 15:04 Temperature 97.8 F Pulse Rate 90 Respiratory 18 12 Rate Blood Pressure 135/70 O2 Sat by Pulse 100 Oximetry - Reevaluation(s) Reevaluation #1: 04/27/21 15:30 Patient is speaking in full sentences with no signs of distress noted. ED Medical Decision Making - Radiology Data [facility] [address] [place] [address] XRay Report Signed Patient: STACEY GASCA MR#: [id number] : 1980 Acct:[id number] Age/Sex: 40 / F ADM Date: 04/27/21 Loc: ED Attending Dr: Ordering Physician: GLENROY ETIENNE NP Date of Service: 04/27/21 Procedure(s): XR forearm RT Accession Number(s): [id number] cc: GLENROY ETIENNE NP Fluoro Time In Minutes: RIGHT FOREARM 2 VIEW(S) INDICATION / CLINICAL INFORMATION: forearm pain s/p direct blow injury COMPARISON: None available. FINDINGS: BONES / JOINT(S): No acute fracture or subluxation. No significant arthritis. SOFT TISSUES: No significant abnormality. ADDITIONAL FINDINGS: None. Signer Name: Armand Wahl MD Signed: 04/27/2021 4:13 PM Workstation Name: [id number] Transcribed By: DB Dictated By: ARMAND WAHL MD Electronically Authenticated By: ARMAND WAHL MD Signed Date/Time: 04/27/211612 DD/ 12 TD/TT: - Medical Decision Making This is a 40-year-old female that presents with right forearm contusion. Patient is stable and was examined by me. X-ray has been obtained and dictated by the radiologist. Patient is notified of the x-ray report with noted by the patient. Patient does have normal range of motion with some tenderness and no joint swelling. No ecchymosis. no joint redness or swelling. Not warm to touch. No signs of cellulites present. Patient was instructed to RICE therapy. Patient received Motrin for pain. Patient is discharged with naproxen. Patient was instructed to follow-up with a orthopedic doctor in 3-5 days or if symptoms worsen and continue return to emergency room as soon as possible. At time of discharge, the patient does not seem toxic or ill in appearance. No acute signs of distress noted. Patient agrees to discharge treatment plan of care. No further questions noted by the patient. Critical care attestation.: If time is entered above; I have spent that time in minutes in the direct care of this critically ill patient, excluding procedure time. ED Disposition Clinical Impression: Contusion of right forearm Qualifiers: Encounter type: initial encounter Qualified Code(s): S50.11XA - Contusion of right forearm, initial encounter Disposition: HOME / SELF CARE / HOMELESS Is pt being admited?: No Does the pt Need Aspirin: No Condition: Stable Instructions: RICE Therapy for Routine Care of Injuries, [id number] Additional Instructions: Follow-up with a orthopedic doctor in 3-5 days or if symptoms worsen and continue return to emergency room as soon as possible. Prescriptions: Naproxen 500 mg PO Q12H PRN #12 tablet PRN Reason: Pain , Severe (7-10) Referrals: PRIMARY CAREMD [Referring] - 3-5 Days DO REEVES MD [Staff Physician] - 3-5 Days Forms: Work/School Release Form(ED) Time of Disposition: 16:50
--- NOTE | 2021-04-27 16:18 | XRay Report ---
RIGHT FOREARM 2 VIEW(S) INDICATION / CLINICAL INFORMATION: forearm pain s/p direct blow injury COMPARISON: None available. FINDINGS: BONES / JOINT(S): No acute fracture or subluxation. No significant arthritis. SOFT TISSUES: No significant abnormality. ADDITIONAL FINDINGS: None. Signer Name: Wil Wahl MD Signed: 04/27/2021 4:13 PM Workstation Name: [id number]
[2021-04-27 17:26] VITALS: BP 126/69
== END 2021-04-27 17:42 | disposition home or self-care (01) ==
LOC: ED 13:56
DX: S50.11XA Contusion of right forearm, initial encounter (principal); W20.8XXA Other cause of strike by thrown, projected or falling object, initial encounter; Y93.89 Activity, other specified; Y92.89 Other specified places as the place of occurrence of the external cause; Y99.0 Civilian activity done for income or pay; J45.909 Unspecified asthma, uncomplicated
CPT/HCPCS: 99283

== ENCOUNTER 2021-10-01 20:31 | Emergency (ER) | payer MEDICARE ==
--- NOTE | 2021-10-02 06:45 | Emergency Department Report ---
ED General Adult HPI - General Chief complaint: Anxiety Stated complaint: CHEST PAIN,BOWEL ISSUES Time Seen by Provider: 10/02/21 06:24 Source: patient Mode of arrival: Ambulatory Limitations: No Limitations - History of Present Illness Initial comments: 40-year-old female with a known history of anxiety presents to the ER today with complaints of mucus in stool. Patient states that after having a bowel movement this morning she noticed that there was mucus mixed in with her stool. She states that the stool color was normal. She denies any melena or hematochezia. She states that at the time she had a bowel movement she did have some mild low abdominal pain and she did feel a bit bloated. She denies any nausea or vomiting. She states that after noticing the mucus in her stool she got very anxious and came to the ER. She denies any fever or chills. She denies any history of abdominal surgeries or chronic GI issues. She is currently on her menstrual cycle. MD Complaint: "Looks like mucous in stool" -: days(s) (1) - Related Data Previous Rx's Medication Instructions Recorded Last Taken Type Ketorolac [Toradol] 10 mg PO Q8H PRN #20 tablet 11/19/18 Unknown Rx Ondansetron [Zofran Odt] 4 mg PO Q6HR PRN #15 tab.rapdis 11/19/18 Unknown Rx Amoxicillin [Amoxicillin TAB] 875 mg PO BID #14 tablet 04/22/19 Unknown Rx Naproxen [Naprosyn] 500 mg PO BID #14 tablet 04/22/19 Unknown Rx Naproxen 500 mg PO Q12H PRN #12 tablet 04/27/21 Unknown Rx Allergies Allergy/AdvReac Type Severity Reaction Status Date / Time No Known Allergies Allergy Verified 04/27/21 14:11 ED Review of Systems ROS: Stated complaint: CHEST PAIN,BOWEL ISSUES Other details as noted in HPI Comment: All other systems reviewed and negative Constitutional: denies: chills, fever Eyes: denies: eye pain, eye discharge, vision change ENT: denies: ear pain, throat pain Respiratory: denies: cough, shortness of breath, SOB with exertion, SOB at rest, wheezing Gastrointestinal: abdominal pain, other (Mucus in stool). denies: nausea, vom iting, diarrhea, constipation, hematemesis, melena, hematochezia Genitourinary: denies: urgency, dysuria, frequency, hematuria, discharge, abnormal menses, dyspareunia Musculoskeletal: denies: back pain, joint swelling, arthralgia, myalgia Skin: denies: rash, lesions, change in color, change in hair/nails, pruritus ED Past Medical Hx - Past Medical History Hx Asthma: Yes - Surgical History Additional Surgical History: x 2 - Social History Smoking Status: Never Smoker - Medications Home Medications: Home Medications Medication Instructions Recorded Confirmed Last Taken Type Ketorolac [Toradol] 10 mg PO Q8H PRN #20 tablet 11/19/18 Unknown Rx Ondansetron [Zofran Odt] 4 mg PO Q6HR PRN #15 tab.rapdis 11/19/18 Unknown Rx Amoxicillin [Amoxicillin TAB] 875 mg PO BID #14 tablet 04/22/19 Unknown Rx Naproxen [Naprosyn] 500 mg PO BID #14 tablet 04/22/19 Unknown Rx Naproxen 500 mg PO Q12H PRN #12 tablet 04/27/21 Unknown Rx ED Physical Exam - General Limitations: No Limitations General appearance: alert, anxious - Head Head exam: Present: atraumatic, normocephalic, normal inspection - Eye Eye exam: Present: normal appearance, PERRL, EOMI Pupils: Present: normal accommodation - ENT ENT exam: Present: normal exam - Neck Neck exam: Present: normal inspection, full ROM. Absent: meningismus ED Course Vital Signs 10/01/21 10/02/21 21:32 07:02 Temperature 98.3 F 97.6 F Pulse Rate 93 H 86 Respiratory 16 16 Rate Blood Pressure 134/78 Blood Pressure 122/66 [Right] O2 Sat by Pulse 99 100 Oximetry ED Medical Decision Making - EKG Data EKG shows normal: sinus rhythm Rate: normal (76) - EKG Data Interpretation: normal EKG - Medical Decision Making 40-year-old female with a known history of anxiety presents to the ER today with complaints of mucus in stool. Patient states that after having a bowel movement this morning she noticed that there was mucus mixed in with her stool. She states that the stool color was normal. She denies any melena or hematochezia. She states that at the time she had a bowel movement she did have some mild low abdominal pain and she did feel a bit bloated. She denies any nausea or vomiting. She states that after noticing the mucus in her stool she got very anxious and came to the ER. She denies any fever or chills. She denies any history of abdominal surgeries or chronic GI issues. She is currently on her menstrual cycle. Patient appears anxious but overall mentally stable, she is well-appearing, nontoxic and not in any significant distress. She appears well-hydrated. She has a soft nontender abdomen. She denies any abdominal pain currently. She does not have any abdominal distention. However she is afebrile remainder of her vital signs are normal. She is neurologically intact. I do not see an indication for emergent work-up at this time. Informed patient that we can give her referral to inbound sales representative especially if this is something that becomes recurrent. Informed her that if she starts noticing any blood in her stools or if it turns black and she starts having increased abdominal pain, fever chills then return immediately to the ER. Patient expressed understanding and agree with plan. Patient was stable at time of discharge. Critical care attestation.: If time is entered above; I have spent that time in minutes in the direct care of this critically ill patient, excluding procedure time. ED Disposition Clinical Impression: Mucus in stool, Anxiety Disposition: 01 HOME / SELF CARE / HOMELESS Is pt being admited?: No Does the pt Need Aspirin: No Condition: Stable Instructions: Managing Anxiety, Adult, Irritable Bowel Syndrome, Adult Additional Instructions: Continue your anxiety medication. I recommend following up with GI specialist for further evaluation including colonscopy if symptoms persist. Return to ED if stool turns black or bloody with development of fever and worsening abdominal pain. Referrals: JAMAL TOMPKINS [Other] - 3-5 Days [facility] [Provider Group] - 3-5 Days Time of Disposition: 06:45
[2021-10-02 07:05] VITALS: BP 122/66
--- NOTE | 2021-10-02 11:26 | Electrocardiograph Report ---
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
== END 2021-10-02 07:08 | disposition home or self-care (01) ==
LOC: ED 20:31
DX: R19.5 Other fecal abnormalities (principal); F41.9 Anxiety disorder, unspecified; J45.909 Unspecified asthma, uncomplicated; Z98.890 Other specified postprocedural states
CPT/HCPCS: 93005; 99282

== ENCOUNTER 2021-10-11 20:12 | Emergency (ER) | payer MEDICARE ==
[2021-10-11 21:11] LABS: Basophils # (Auto) 0.1 K/mm3 (0.0-0.1); Basophils % (Auto) 0.8 % (0.0-1.8); Eosinophils # (Auto) 0.1 K/mm3 (0.0-0.4); Hematocrit 37.7 % (30.3-42.9); Hemoglobin 11.9 gm/dl (10.1-14.3); Lymphocytes # (Auto) 2.8 K/mm3 (1.2-5.4); Lymphocytes % (Auto) 25.7 % (13.4-35.0); Mean Corpuscular HGB Conc 31 % (30-34); Mean Corpuscular Volume 80 fl (79-97); Monocytes # (Auto) 0.6 K/mm3 (0.0-0.8); Monocytes % (Auto) 5.8 % (0.0-7.3); Platelet Count 472 K/mm3 (140-440); Red Blood Count 4.73 M/mm3 (3.65-5.03)
[2021-10-11 21:25] LABS: Alanine Aminotransferase 11 units/L (7-56); Albumin 4.5 g/dL (3.9-5); BUN/Creatinine Ratio 11; Blood Urea Nitrogen 8 mg/dL (7-17); Calcium 9.3 mg/dL (8.4-10.2); Hemolysis Index 0
[2021-10-11] MEDS ORDERED: ACETAMINOPHEN 325 MG TAB PO STA (21:35)
--- NOTE | 2021-10-11 21:36 | Emergency Department Report ---
ED General Adult HPI - General Chief complaint: Abdominal Pain Stated complaint: LFT SIDE PAIN PUI?: No Time Seen by Provider: 10/11/21 21:13 Source: patient, RN notes reviewed, old records reviewed Mode of arrival: Ambulatory Limitations: No Limitations - History of Present Illness Initial comments: This patient is a pleasant 40-year-old female, who presents to the ER today with a complaint of left-sided abdominal muscular pain, after starting a new exercise routine. She does not think that she is . She has not taken any medications [id number]. She reports that this pain started after she started a new workout routine, which included modified push-ups, twisting exercises, leg lifts, and core/abdominal workouts. She denies travel, surgery, immobilization, DVT/PE risk factors. She denies additional injuries and complaints. Her pain is achy, and increases with range of motion and twisting. It decreases with rest and position. The patient reports that she is not , and reports that she has not delivered her given in the past 6 weeks -: Gradual, days(s) Location: left Quality: aching Consistency: intermittent Improves with: other Worsens with: other Associated Symptoms: denies other symptoms - Related Data Previous Rx's Medication Instructions Recorded Last Taken Type Acetaminophen [Non-Aspirin Extra 500 mg PO Q6HR PRN #30 tablet 10/11/21 Unknown Rx Strength] Ibuprofen [Motrin] 600 mg PO Q8H PRN #30 tablet 10/11/21 Unknown Rx Allergies Allergy/AdvReac Type Severity Reaction Status Date / Time No Known Allergies Allergy Verified 04/27/21 14:11 ED Review of Systems ROS: Stated complaint: LFT SIDE PAIN Other details as noted in HPI Comment: All other systems reviewed and negative Gastrointestinal: as per HPI Musculoskeletal: myalgia ED Past Medical Hx - Past Medical History Hx Asthma: Yes - Surgical History Additional Surgical History: x 2 - Social History Smoking Status: Never Smoker - Medications Home Medications: Home Medications Medication Instructions Recorded Confirmed Last Taken Type Acetaminophen [Non-Aspirin Extra 500 mg PO Q6HR PRN #30 tablet 10/11/21 Unknown Rx Strength] Ibuprofen [Motrin] 600 mg PO Q8H PRN #30 tablet 10/11/21 Unknown Rx ED Physical Exam - General Limitations: No Limitations General appearance: alert, in no apparent distress - Head Head exam: Present: atraumatic, normocephalic - Eye Eye exam: Present: normal appearance, EOMI. Absent: nystagmus - ENT ENT exam: Present: normal exam, normal orophraynx, mucous membranes moist, normal external ear exam - Neck Neck exam: Present: normal inspection, full ROM. Absent: tenderness, meningismus - Respiratory Respiratory exam: Present: normal lung sounds bilaterally. Absent: respiratory distress, wheezes, rales, rhonchi, stridor, decreased breath sounds - Cardiovascular Cardiovascular Exam: Present: regular rate, normal rhythm, normal heart sounds. Absent: bradycardia, tachycardia, irregular rhythm, systolic murmur, diastolic murmur, rubs, gallop - GI/Abdominal GI/Abdominal exam: Present: soft, normal bowel sounds. Absent: distended, tenderness, guarding, rebound, pulsatile mass - Extremities Exam Extremities exam: Present: normal inspection, full ROM, other (2+ pulses noted in the bilateral upper and lower extremities. There is no palpable cord. negative Homans sign. Muscular compartments are soft. The pelvis is stable.). Absent: pedal edema, calf tenderness - Back Exam Back exam: Present: normal inspection, full ROM. Absent: tenderness, CVA tenderness (R), CVA tenderness (L), paraspinal tenderness, vertebral tenderness - Neurological Exam Neurological exam: Present: alert, oriented X3, normal gait, other (No facial droop. Tongue midline. Extraocular movements intact bilaterally. Facial sensation intact to light touch in V1, V2, V3 distribution bilaterally. 5 and a 5 strength in 4 extremities. Sensation intact to light touch in 4 extremities.). Absent: motor sensory deficit - Psychiatric Psychiatric exam: Present: normal affect, normal mood - Skin Skin exam: Present: warm, dry, intact, normal color. Absent: rash ED Course Vital Signs 10/11/21 20:20 Temperature 98.5 F Pulse Rate 98 H Respiratory 17 Rate Blood Pressure 142/81 O2 Sat by Pulse 100 Oximetry ED Medical Decision Making - Lab Data Result diagrams: 10/11/21 20:34 10/11/21 20:34 Vital Signs 10/11/21 20:20 Temperature 98.5 F Pulse Rate 98 H Respiratory 17 Rate Blood Pressure 142/81 O2 Sat by Pulse 100 Oximetry Lab Results 10/11/21 10/11/21 10/11/21 Range/Units 20:25 20:34 20:34 WBC 10.7 (4.5-11.0) K/mm3 RBC 4.73 (3.65-5.03) M/mm3 Hgb 11.9 (10.1-14.3) gm/dl Hct 37.7 (30.3-42.9) % MCV 80 (79-97) fl MCH 25 L (28-32) pg MCHC 31 (30-34) % RDW 17.0 H (13.2-15.2) % Plt Count 472 H (140-440) K/mm3 Lymph % (Auto) 25.7 (13.4-35.0) % [place] % (Auto) 5.8 (0.0-7.3) % Eos % (Auto) 1.0 (0.0-4.3) % Baso % (Auto) 0.8 (0.0-1.8) % Lymph # (Auto) 2.8 (1.2-5.4) K/mm3 [place] # (Auto) 0.6 (0.0-0.8) K/mm3 Eos # (Auto) 0.1 (0.0-0.4) K/mm3 Baso # (Auto) 0.1 (0.0-0.1) K/mm3 Seg Neutrophils % 66.7 (40.0-70.0) % Seg Neutrophils # 7.2 (1.8-7.7) K/mm3 Sodium 135 L (137-145) mmol/L Potassium 3.6 (3.6-5.0) mmol/L Chloride 98.8 (98-107) mmol/L Carbon Dioxide 23 (22-30) mmol/L Anion Gap 17 mmol/L BUN 8 (7-17) mg/dL Creatinine 0.7 (0.6-1.2) mg/dL Estimated GFR > 60 ml/min BUN/Creatinine Ratio 11 % Glucose 93 (65-100) mg/dL Calcium 9.3 (8.4-10.2) mg/dL Total Bilirubin 0.20 (0.1-1.2) mg/dL AST 15 (5-40) units/L ALT 11 (7-56) units/L Alkaline Phosphatase 79 (35-129) units/L Total Protein 8.0 (6.3-8.2) g/dL Albumin 4.5 (3.9-5) g/dL Albumin/Globulin Ratio 1.3 % Urine Color Colorless (Yellow) Urine Turbidity Clear (Clear) Urine pH 6.0 (5.0-7.0) Ur Specific [place] 1.001 L (1.003-1.030) Urine Protein <15 mg/dl (Negative) mg/dL Urine Glucose (UA) Neg (Negative) mg/dL Urine Ketones Tr (Negative) mg/dL Urine Blood Neg (Negative) Urine Nitrite Neg (Negative) Urine Bilirubin Neg (Negative) Urine Urobilinogen < 2.0 (<2.0) mg/dL Ur Leukocyte Esterase Neg (Negative) Urine WBC (Auto) < 1.0 (0.0-6.0) /HPF Urine RBC (Auto) < 1.0 (0.0-6.0) /HPF U Epithel Cells (Auto) 5.0 (0-13.0) /HPF Urine Bacteria (Auto) 1+ (Negative) /HPF Urine HCG, Qual (Negative) 10/11/21 Range/Units Unknown WBC (4.5-11.0) K/mm3 RBC (3.65-5.03) M/mm3 Hgb (10.1-14.3) gm/dl Hct (30.3-42.9) % MCV (79-97) fl MCH (28-32) pg MCHC (30-34) % RDW (13.2-15.2) % Plt Count (140-440) K/mm3 Lymph % (Auto) (13.4-35.0) % [place] % (Auto) (0.0-7.3) % Eos % (Auto) (0.0-4.3) % Baso % (Auto) (0.0-1.8) % Lymph # (Auto) (1.2-5.4) K/mm3 [place] # (Auto) (0.0-0.8) K/mm3 Eos # (Auto) (0.0-0.4) K/mm3 Baso # (Auto) (0.0-0.1) K/mm3 Seg Neutrophils % (40.0-70.0) % Seg Neutrophils # (1.8-7.7) K/mm3 Sodium (137-145) mmol/L Potassium (3.6-5.0) mmol/L Chloride (98-107) mmol/L Carbon Dioxide (22-30) mmol/L Anion Gap mmol/L BUN (7-17) mg/dL Creatinine (0.6-1.2) mg/dL Estimated GFR ml/min BUN/Creatinine Ratio % Glucose (65-100) mg/dL Calcium (8.4-10.2) mg/dL Total Bilirubin (0.1-1.2) mg/dL AST (5-40) units/L ALT (7-56) units/L Alkaline Phosphatase (35-129) units/L Total Protein (6.3-8.2) g/dL Albumin (3.9-5) g/dL Albumin/Globulin Ratio % Urine Color (Yellow) Urine Turbidity (Clear) Urine pH (5.0-7.0) Ur Specific [place] (1.003-1.030) Urine Protein (Negative) mg/dL Urine Glucose (UA) (Negative) mg/dL Urine Ketones (Negative) mg/dL Urine Blood (Negative) Urine Nitrite (Negative) Urine Bilirubin (Negative) Urine Urobilinogen (<2.0) mg/dL Ur Leukocyte Esterase (Negative) Urine WBC (Auto) (0.0-6.0) /HPF Urine RBC (Auto) (0.0-6.0) /HPF U Epithel Cells (Auto) (0-13.0) /HPF Urine Bacteria (Auto) (Negative) /HPF Urine HCG, Qual Negative (Negative) - Medical Decision Making Differential diagnosis, include but not limited to: Sprain, strain, musculoskeletal pain Assessment and plan: 40-year-old female, who is afebrile, with reassuring vital signs, who is not currently tachycardic, tachypneic or hypoxic, who denies DVT and pulmonary embolism risk factors, who is low risk by Wells criteria for pulmonary embolism, and PERC negative, presenting with reproducible left-sided muscular pain, which increases with twisting, leg lifts, range of motion, and decreases with rest and position. Her abdominal exam is soft and benign, without rebound, guarding or peritoneal signs. She is not , laboratory studies are nonactionable. Patient educated as to the natural history of musculoskeletal pain. Physical activities as tolerated, Tylenol, Motrin, rest, ice, compression, elevation. Discussed with patient. All questions answered. Return precautions reviewed Critical care attestation.: If time is entered above; I have spent that time in minutes in the direct care of this critically ill patient, excluding procedure time. ED Disposition Clinical Impression: Negative test, Muscular abdominal pain in left flank Disposition: HOME / SELF CARE / HOMELESS Is pt being admited?: No Does the pt Need Aspirin: No Condition: Stable Instructions: Muscle Strain, [id number], RICE Therapy for Routine Care of Injuries, Abdominal Pain (ED) Additional Instructions: Patient may alternate ice packs and heat packs as needed for physical pain, in addition to taking the prescribed pain medications. Patient may resume her workout routine, and participate as physically tolerated. Patient most likely has musculoskeletal pain, which is expected to wax and wane as the patient becomes condition for her annual physical fitness routine. We do recommend that the patient follow-up with a primary care doctor within the next 4 to 6 weeks. Please return to the emergency room right away with new pain, worsened pain, migration of pain, projectile vomiting, change in mental status, confusion, inability tolerate liquid feeds, new, worsened or different symptoms not present on the initial emergency room evaluation Prescriptions: Ibuprofen [Motrin] 600 mg PO Q8H PRN #30 tablet PRN Reason: Pain Acetaminophen [Non-Aspirin Extra Strength] 500 mg PO Q6HR PRN #30 tablet PRN Reason: Pain , Severe (7-10) Referrals: [facility] [Provider Group] - as needed
[2021-10-11 21:49] LABS: Bacteria,Urine 1+ /HPF (Negative); Bilirubin,Urine NEG (Negative); Blood,Urine NEG (Negative); Color,Urine Colorless (Yellow); Protein,Urine <15 mg/dL mg/dL (Negative); RBC,Urine < 1.0 /HPF (0.0-6.0); Urobilinogen,Urine < 2.0 mg/dL (<2.0); WBC,Urine < 1.0 /HPF (0.0-6.0)
[2021-10-11 21:52] LABS: HCG Qualitative,Urine Negative (Negative)
[2021-10-11] MEDS ORDERED: IBUPROFEN 600 MG TAB PO ONE (22:11)
[2021-10-12 01:55] VITALS: BP 121/74
== END 2021-10-11 23:00 | disposition home or self-care (01) ==
LOC: ED 20:12
DX: R10.9 Unspecified abdominal pain (principal); Z32.02 Encounter for pregnancy test, result negative; J45.909 Unspecified asthma, uncomplicated
CPT/HCPCS: 36415; 80053; 81001; 81025; 85025; 99283